=== PATIENT | male | born 1995 | race Two or more races ===

== ENCOUNTER 2019-04-14 17:38 | Emergency (ER) | payer MEDICAID, OTHER ==
[~2019-04-14] VITALS: Ht 175.3 cm; Wt 70.2 kg
--- NOTE | 2019-04-14 18:34 | NUR ---
NOT IN LOBBY X1
[2019-04-14 18:53] VITALS: BP 138/92
--- NOTE | 2019-04-14 21:36 | NUR ---
Patient given discharge instructions and Rx, they have confirmed that they understand the instructions. Patient ambulatory with steady gait.
== END 2019-04-14 21:37 | disposition home or self-care (01) ==
LOC: ED 21:31
DX: F10.20 Alcohol dependence, uncomplicated (principal); Y90.0 Blood alcohol level of less than 20 mg/100 ml; F51.01 Primary insomnia; F17.210 Nicotine dependence, cigarettes, uncomplicated
CPT/HCPCS: 99283